=== PATIENT | female | born 1960 | race Two or more races ===

== ENCOUNTER 2023-10-10 12:26 | Emergency (ER) | payer SELFPAY ==
[~2023-10-10] VITALS: Ht 152.4 cm; Wt 49.9 kg
[2023-10-10 12:40] VITALS: BP 158/91; TEMP 98.4; O2SAT 100
[2023-10-10] MEDS ORDERED: KETOROLAC TROMETHAMINE 15 MG/ML VIAL IM ONE (13:00)
[2023-10-10] MEDS ORDERED: KETOROLAC TROMETHAMINE 15 MG/ML VIAL ONE (13:31)
[2023-10-10] MEDS ORDERED: CYCL5TAB PO (14:24)
[2023-10-10] MEDS ORDERED: HYDR-4303 PO (14:24)
[2023-10-10] MEDS ORDERED: METH4TAB17 PO (14:24)
[2023-10-10] MEDS ORDERED: IBUP-1955 PO (14:24)
[2023-10-10] MEDS ORDERED: LIDO30AD10 TP (14:24)
== END 2023-10-10 15:12 | disposition home or self-care (01) ==
LOC: ER 12:38
DX: M54.42 Lumbago with sciatica, left side (principal); M51.26 Other intervertebral disc displacement, lumbar region; M48.061 Spinal stenosis, lumbar region without neurogenic claudication; I10 Essential (primary) hypertension; Z60.2 Problems related to living alone
CPT/HCPCS: 99285; 72131; 96372; J1885